=== PATIENT | female | born 1980 | race Caucasian/White ===

== ENCOUNTER 2019-04-07 13:12 | Day surgery (SDC) | payer OTHER ==
[2019-04-07 13:57] VITALS: BP 119/80; TEMP 98.3; BMI 30.5
[2019-04-07 14:23] LABS: Amnisure Test No Membranes Rupture (No Rupture)
[2019-04-07 14:24] LABS: Amnisure Internal Control QC ACCEPTABLE (ACCEPTABLE)
[2019-04-07] MEDS ORDERED: hydrALAZINE 20 MG/ML VIAL SLOW IVP PRN (14:51)
--- NOTE | 2019-04-07 15:30 | PRG ---
DATE OF SERVICE: 04/07/2019 TIME OF SERVICE: 1450 hours. PRESENTING COMPLAINT: Possible rupture of membranes, 37 weeks. HISTORY OF PRESENT ILLNESS: Ms. Chavis is a 38-year-old, 2, para 1, with EDC of 04/24, who sees Dr. Jaimes at [facility]. She reports gush of fluid earlier. She denies further leakage of fluid. She has active fetus. She denies significant contractions. No vaginal bleeding. 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 Group B strep negative. Normal 50 g. O positive antibody negative. PAST MEDICAL HISTORY: Depression. PAST SURGICAL HISTORY: None. ALLERGIES: DENIES. MEDICATIONS: Fluoxetine and vitamins. SOCIAL HISTORY: Denies tobacco, alcohol, or drug use. FAMILY HISTORY: Noncontributory. REVIEW OF SYSTEMS: Noncontributory. PHYSICAL EXAMINATION: GENERAL: A white female, in no acute distress. VITAL SIGNS: Blood pressure 118/72, pulse 85, respirations 18, and temperature 98.6. HEENT: Within normal limits. LUNGS: Clear to auscultation bilaterally. HEART: Regular rate and rhythm. ABDOMEN: Soft and nontender. Occasional indentable contractions. Fundal height 37 cm. FHTs 140s. VULVA: Without lesions. VAGINA: By RN, was 150, -2, cephalic, which is consistent with in-office exam on 03/20. EXTREMITIES: Without clubbing, cyanosis, or edema. monitoring is carried out for greater than 30 minutes. Positive accelerations. No deceleration. Category I heart rate tracing. Contractions, q.5-10 minutes. AmniSure collected by RN was negative for rupture of membranes. IMPRESSION: 37 weeks. No evidence of rupture of membranes. No evidence of active labor. PLAN: Discharge home. Keep scheduled followup, ER precautions. Job ID: [id number]
== END 2019-04-07 14:55 | disposition home or self-care (01) ==
LOC: L&D/OP 13:12
PROVIDERS: ATTEND Student in an Organized Health Care Education/Training Program
DX: O99.89 Other specified diseases and conditions complicating pregnancy, childbirth and the puerperium (principal); N89.8 Other specified noninflammatory disorders of vagina; O99.343 Other mental disorders complicating pregnancy, third trimester; F32.9 Major depressive disorder, single episode, unspecified; Z3A.37 37 weeks gestation of pregnancy; Z79.899 Other long term (current) drug therapy
CPT/HCPCS: 84112; 99283

== ENCOUNTER 2019-04-10 21:50 | Inpatient (IN) | payer OTHER ==
[2019-04-10 22:25] VITALS: BMI 31.0
[2019-04-10] MEDS ORDERED: Acetaminophen 500 MG TAB PO PRN (23:02)
[2019-04-10] MEDS ORDERED: Ondansetron PF 4 MG/2 ML Vial IVP PRN (23:02)
[2019-04-10] MEDS ORDERED: Butorphanol Tartrate 1 MG/ML VIAL SLOW IVP PRN (23:02)
[2019-04-10] MEDS ORDERED: hydrALAZINE 20 MG/ML VIAL SLOW IVP PRN (23:02)
[2019-04-10] MEDS ORDERED: Promethazine HCl 25 MG/ML VIAL IM PRN (23:02)
[2019-04-10] MEDS ORDERED: Carboprost 250 MCG/ML AMP IM PRN (23:15)
[2019-04-10] MEDS ORDERED: Methylergonovine 0.2 MG/ML VIAL IM PRN (23:15)
[2019-04-10] MEDS ORDERED: Misoprostol 200 MCG TAB RC PRN (23:15)
[2019-04-10] MEDS ORDERED: HYDROcodone/Acetaminophen 5/325 mg Tablet PO PRN ×2 (23:15)
[2019-04-10] MEDS ORDERED: Lidocaine 1% (PF) 30 ML VIAL SC PRN (23:15)
[2019-04-10] MEDS ORDERED: Penicillin G Potassium 5 MILL.UNITS in Sodium Chloride 0.9% 100 ML IVPB SCH (23:15)
[2019-04-10] MEDS ORDERED: Ibuprofen 800 MG TAB PO PRN (23:15)
[2019-04-10] MEDS ORDERED: NS w/ Oxytocin 10 units 500 ML IV SCH ×2 (23:15)
[2019-04-10] MEDS ORDERED: NS / Oxytocin 40 units/1000ml 1,000 ML IV SCH (23:15)
[2019-04-10] MEDS: Lactated Ringer's 1,000 ML IV SCH (23:25)
[2019-04-11 00:08] LABS: Mean Corpuscular HGB CONC 32.8 g/dL (32.0-36.0); Mean Corpuscular Hemoglobin 30.3 pg (27.0-31.0); Mean Corpuscular Volume 92.2 fL (78.0-98.0); Mean Platelet Volume 11.1 fL (7.4-10.4); Platelet Count 154 thou/uL (130-400); RBC Distribution Width 11.7 % (11.5-14.5); Red Blood Cell (RBC) Count 3.62 mill/uL (4.20-5.40); White Blood Cell (WBC) Count 7.8 thou/uL (4.8-10.8)
[2019-04-11 00:47] LABS: Syphilis Antibody Nonreactive (Nonreactive); Syphilis Antibody Index 0.04 S/CO (<1.00 Non-Reactive)
[2019-04-11] MEDS ORDERED: Penicillin G Potassium 2.5 MILL.UNITS in Sodium Chloride 0.9% 100 ML IVPB SCH (03:00)
[2019-04-11] MEDS: Lactated Ringer's 1,000 ML IV SCH ×3 (03:04→19:11)
[2019-04-11 03:46] LABS: Hep B Surf Ag Non-Reactive S/CO (NonReactive)
[2019-04-11 03:47] LABS: HBSAg Index 0.25 S/CO (0-0.99)
[2019-04-11] MEDS: Penicillin G 2.5 MILL.units 2.5 MILL.UNITS in Premix Bag 1 BAG IVPB SCH ×3 (05:03→19:11)
[2019-04-11] MEDS ORDERED: Fentanyl 4 mcg/Bup 0.1% Cadd 100 ML ONE (07:24)
[2019-04-11] MEDS ORDERED: Fentanyl 4 mcg/Bupivacaine 0.1% Cassette 100 ML EPIDURAL SCH (08:00)
[2019-04-11] MEDS ORDERED: diphenhydrAMINE 50 MG/ML VIAL IVP PRN (08:00)
[2019-04-11] MEDS ORDERED: Promethazine HCl 25 MG/ML VIAL IM PRN (08:00)
[2019-04-11] MEDS ORDERED: Communication Order-Pharmacy FS SCH (08:00)
[2019-04-11] MEDS ORDERED: Ondansetron PF 4 MG/2 ML Vial IVP PRN ×2 (08:00→15:50)
[2019-04-11] MEDS ORDERED: Naloxone HCl 0.4 mg/ml Vial IVP PRN ×2 (08:00)
[2019-04-11] MEDS ORDERED: Acetaminophen 325 MG TAB PO PRN (08:00)
[2019-04-11] MEDS ORDERED: Lactated Ringer's 500 ML IV PRN (08:00)
[2019-04-11] MEDS ORDERED: ePHEDrine/0.9% NaCl/PF SYRINGE 50 mg/10 ml SLOW IVP PRN (08:00)
[2019-04-11] MEDS ORDERED: Bupivacaine/Epinephrine 0.25% 30 ML VIAL ONE (11:11)
--- NOTE | 2019-04-11 13:21 | PDOC.OPDEL ---
OB Operative/Delivery Note Delivery Dr/Surgeon: Fiona Assist: n/a Pre-Delivery Diagnosis: ruptured membrane Procedure/Post Delivery Dx: operative vaginal delivery (VAVD) Weeks gestation: 38 Anesthesia: epidural - Findings A Sex: female - Additional Findings/Plan Placenta delivered: spontaneous Repaired Obstetrical Laceration: 2nd degree (repaired with 2-0 chromic) Estimated blood loss: 75cc Post delivery plan: routine recovery
[2019-04-11] MEDS ORDERED: diphenhydrAMINE 25 MG CAP PO PRN (15:50)
[2019-04-11] MEDS ORDERED: Preparation H Ointment 28 GM TUBE PR PRN (15:50)
[2019-04-11] MEDS ORDERED: Zolpidem Tartrate 5 MG TAB PO PRN (15:50)
[2019-04-11] MEDS ORDERED: Benzocaine-Menthol 82.5 ML CAN TOP PRN (15:50)
[2019-04-11] MEDS ORDERED: NS / Oxytocin 40 units/1000ml 1,000 ML IV SCH (15:50)
[2019-04-11] MEDS ORDERED: Lanolin Ointment 7 GM TUBE TOP PRN (15:50)
[2019-04-11] MEDS ORDERED: hydrALAZINE 20 MG/ML VIAL SLOW IVP PRN (15:50)
[2019-04-11] MEDS ORDERED: Bisacodyl 10 MG SUPP PR PRN (15:50)
[2019-04-11] MEDS ORDERED: HYDROcodone/Acetaminophen 5/325 mg Tablet PO PRN (15:50)
[2019-04-11] MEDS ORDERED: Milk Of Magnesia 30 ML UDCUP PO PRN (15:50)
[2019-04-11] MEDS: Ferrous Sulfate 325 MG TAB PO SCH (18:14)
[2019-04-11] MEDS: Docusate Calcium (SURFAK) 240 MG CAP PO SCH (21:19)
[2019-04-11] MEDS: Ibuprofen 800 MG TAB PO SCH (21:19)
[2019-04-11] MEDS: HYDROcodone/Acetaminophen 5/325 mg Tablet PO PRN (22:06)
[2019-04-12] MEDS: Ferrous Sulfate 325 MG TAB PO SCH ×2 (03:49→10:28)
[2019-04-12] MEDS: HYDROcodone/Acetaminophen 5/325 mg Tablet PO PRN ×2 (03:50→08:17)
[2019-04-12] MEDS: Ibuprofen 800 MG TAB PO SCH ×2 (06:13→13:32)
--- NOTE | 2019-04-12 06:48 | PDOC.EVN ---
Event Note - Event Note Event Note: DISCHARGE NOTE Admit Date: 04/11/19 Discharge date: 04/12/19 (from 3SE) Principle Diagnosis: vacuum assisted vaginal delivery Other diagnosis: multigravida early term gestation (38 weeks) Patient was admitted as a patient of Dr Jaimes. underwent vacuum assisted delivery 04/11/19. Did well . I evaluated the patient at bedside on the morning of 04/12/19 and she desired afternoon discharge if possible. Vitals stable, afebrile. Nontachycardic. No active VB. She was . Plan was made for PM discharge at 1600 with motrin as discharge medication. Follow up in 2-4 weeks. Motrin 600mg as prn med
[2019-04-12] MEDS: Docusate Calcium (SURFAK) 240 MG CAP PO SCH (08:15)
[2019-04-12] MEDS ORDERED: Prenatal Vitamin 1 TAB PO SCH (09:00)
[2019-04-12 10:52] VITALS: BP 102/58; TEMP 97.8
[2019-04-12] MEDS ORDERED: Adacel (T-DAP) 0.5 ML SYRINGE IM ONE (15:50)
== END 2019-04-12 15:00 | disposition home or self-care (01) | DRG 807 ==
LOC: L&D/OP 21:50 → L&D 04-11 07:43 → 3SE 04-11 15:39
PROVIDERS: ADMIT Student in an Organized Health Care Education/Training Program; ATTEND Student in an Organized Health Care Education/Training Program
PROC: 10D07Z6 Extraction of Products of Conception, Vacuum, Via Natural or Artificial Opening (ICD-10-PCS; principal; 2019-04-11)
PROC: 0KQM0ZZ Repair Perineum Muscle, Open Approach (ICD-10-PCS; 2019-04-11)
DX: O42.92 Full-term premature rupture of membranes, unspecified as to length of time between rupture and onset of labor (principal); Z37.0 Single live birth; Z3A.38 38 weeks gestation of pregnancy; O70.1 Second degree perineal laceration during delivery
CPT/HCPCS: 36415; 51702; 85027; 86780; 86850; 86900; 86901; 87340; 99285; J0595; J2001; J2405; J2540; J2590; J3490

== ENCOUNTER 2020-10-10 02:27 | Emergency (ER) | payer OTHER ==
[2020-10-10] MEDS ORDERED: Boostrix 0.5 ML (Tdap) VIAL ONE (02:55)
[2020-10-10] MEDS ORDERED: Lidocaine 1% PF 5 ML VIAL ONE (03:44)
[2020-10-10] MEDS ORDERED: Bacitracin 1 PK ONE (05:07)
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
== END 2020-10-10 05:22 | disposition home or self-care (01) ==
LOC: ERS 02:27
DX: S01.81XA Laceration without foreign body of other part of head, initial encounter (principal); F17.200 Nicotine dependence, unspecified, uncomplicated; Z23 Encounter for immunization; V49.50XA Passenger injured in collision with unspecified motor vehicles in traffic accident, initial encounter
CPT/HCPCS: 12052; 70450; 90471; 90715